=== PATIENT | male | born 1980 | race Caucasian/White ===

== ENCOUNTER 2024-11-04 13:50 | Emergency (ER) | payer SELFPAY ==
[2024-11-04 14:35] VITALS: BP 131/92; PULSE 84; RESP 18; TEMP 37.4; O2SAT 96; BMI 38.8
--- NOTE | 2024-11-04 14:35 | ED.DENTAL ---
HPI - Dental/Oral General Chief complaint: Dental/Oral Stated complaint: Tooth infection Time Seen by Provider: 11/04/24 14:43 Source: patient and RN notes reviewed Mode of arrival: ambulatory Limitations: no limitations History of Present Illness ED Provider: Shobha Hilton PA-C HPI Narrative: This is a 44-year-old male who presents to the emergency department with concerns of right upper dental pain. Patient reports that he has known dental problems, needs to see a dentist. He has not been on antibiotics recently. Denies any fevers or chills. No other complaints or concerns at this time. MD Complaint: tooth pain Location: Tooth # (1) Onset (ago): day(s) Duration: constant Relieving factors: nothing Exacerbating factors: nothing Treatment prior to arrival: none Related Data Previous Rx's ?Medication ?Instructions ?Recorded amoxicillin 875 mg-potassium 1 tab PO BID 7 days #14 tabs 11/04/24 clavulanate 125 mg tablet Allergies Allergy/AdvReac Type Severity Reaction Status Date / Time No Known Allergies Allergy Verified 11/04/24 14:36 Review of Systems Review of Systems: Constitutional : No Fever, No Chills ENT/Mouth : No sore throat, No Rhinorrhea Eyes: No Eye Pain, No Swelling, No Redness Cardiovascular : No Chest Pain, No SOB Respiratory : No Cough, No Sputum Gastrointestinal : No Nausea, No Vomiting, No Diarrhea, No abdominal Pain Genitourinary : No Dysuria, No Hematuria Musculoskeletal : No joint pain, No Myalgias, No Joint Swelling Skin : No Skin Lesions, positive skin rash Neuro : No Weakness, No Numbness, No Headache All other systems reviewed and are negative Yes all other systems are reviewed and are negative Constitutional: Constitutional: Reports as per [facility] Social History Social History Advance Directives: No Advance Directives Information Provided: Yes Physical Exam Exam: Exam: General: Awake, alert, and oriented X3. No acute distress. HEENT: Normal inspection, tooth 1 with tenderness palpation in this region, with dental a cane noted, no surrounding gingival erythema, fluctuance. No trismus, drooling, or dysphonia. CVS: Normal heart rate and rhythm. Pulses normal. Respiratory: No respiratory distress Skin: Warm, dry, no rashes noted to exposed skin. Normal skin color. Normal skin turgor. Extremities: Normal to inspection Neuro: Oriented X 3. No motor deficit. No sensory deficit. Vital Signs: Vital Signs: Last Vital Signs Temp 99.3 F 11/04/24 15:29 Pulse 84 11/04/24 15:29 Resp 18 11/04/24 15:29 BP 131/92 H 11/04/24 15:29 Pulse Ox 96 11/04/24 15:29 O2 Del Method Room Air 11/04/24 15:29 BMI result Body Mass Index 38.8 Course Course Course Narrative: This is an RME: Additional HPI, ROS, PE not included below will be deferred to primary provider. RME assessment and note performed by: Shobha Hilton PA-C This is a [id number]-male who presents to the ER with complaints of right upper dental pain. Plan: Medications Administered Discontinued Medications Generic Name Dose Route Start Last Admin Trade Name Freq PRN Reason Stop Dose Admin Amoxicillin/Clavulanate Potassium 875 mg 11/04/24 14:56 11/04/24 15:15 Amoxicillin/Potassium Clav 875 Mg Tablet PO 11/04/24 14:57 875 mg ONCE ONE Administration Ibuprofen 600 mg 11/04/24 14:56 11/04/24 15:16 Ibuprofen 600 Mg Tablet PO 11/04/24 14:57 600 mg ONCE ONE Administration Medical Decision Making Medical Decision Making [facility] Narrative: This is a 44-year-old male who presents emergency department with complaints of right upper dental pain for the last several days. Patient is homeless, does not have a dentist. Known dental issues. Patient has dental decay to his right upper tooth. No evidence of dental abscess. Will treat with course of antibiotics. Given strict return precautions, he understands and agrees with plan. Patient stable for discharge. Differential Diagnosis Differential Diagnoses: The differential diagnosis associated with the presentation includes Dental decay, dental abscess, dental fracture, dentalgia Discharge Plan Discharge Clinical Impression: Pain, dental Patient Disposition: Home, Self-Care Instructions: Toothache (ED) Additional Instructions: You were seen in the emergency department due to dental pain. Please take prescribed antibiotic as directed, finish the entire course even if your symptoms improve. You received your 1st dose in the department today, resume tonight. You may take ibuprofen and or Tylenol as needed for pain and symptoms. You need to follow-up with a dentist, call to make an appointment. If any new or worsening symptoms occur including but not limited to worsening pain, high fevers, difficulty swallowing or breathing, please return for re-evaluation. Prescriptions: New amoxicillin-pot clavulanate 875-125 mg tablet 1 tab PO BID 7 Days Qty: 14 0RF Interventions: ED Discharge Assessment Last Done: 11/04/24 15:29 Discharge Date/Time: 11/04/24 15:29 Print Language: Bangladeshi
[2024-11-04 15:29] VITALS: BP 131/92; PULSE 84; RESP 18; TEMP 37.4; O2SAT 96
--- OUTSIDE RECORDS SUMMARY | 2024-11-04 16:22 | XMS_ITS | Encounter Summary ---
Author Organization [facility] Address [address] [place] [address] [address] [address] Care Team Providers Care Sap Developer Name Role Phone Heber Patiño MD Primary Care Provider [phone] Reason for Visit * Reason Comments Med Refill Encounter Details Date Type Department Care Team (Late st Contact Info) Description 10/12/2023 Refill [facility] [address] [place] [address] Heber Patiño MD [address] [place] [address] Social History Tobacco Use Types Packs/Day Years Used Date Smoking Tobacco: Never Assessed Sex and Gender Information Value Date Recorded Sex Assigned at Male 12/02/2021 3:29 PM EDT Legal Sex Male 3:29 PM EDT Gender Identity Female 12/02/2021 3:29 PM EDT Sexual Orientation Straight 12/02/2021 3: 29 PM EDT documented as of this encounter Miscellaneous Notes * Telephone Encounter - Lina Ash MA - 10/12/2023 10:52 AM EDT There should still be another refill documented in this encounter Plan of Treatment Not on file documented as of this encounter Visit Diagnoses Not on filedocumented in this encounter Care Teams Sap Developer Relationship Specialty Start Date End Date Heber Patiño MD [address] [place] [address] PCP - General Family Medicine 04/05/22 documented as of this encounter
--- OUTSIDE RECORDS SUMMARY | 2024-11-04 16:22 | XMS_ITS | Encounter Summary ---
Author Organization [facility] Address [address] [place] [address] [address] [address] Care Team Providers Care Air Traffic Controller Name Role Phone Heber Patiño MD Primary Care Provider [phone] Reason for Visit * Reason Comments Med Refill Encounter Details Date Type Department Care Team (Late st Contact Info) Description 06/09/2023 Refill [facility] [address] [place] [address] Heber Patiño MD [address] [place] [address] Social History Tobacco Use Types Packs/Day Years Used Date Smoking Tobacco: Never Assessed Sex and Gender Information Value Date Recorded Sex Assigned at Male 12/02/2021 3:29 PM EDT Legal Sex Male 3:29 PM EDT Gender Identity Female 12/02/2021 3:29 PM EDT Sexual Orientation Straight 12/02/2021 3: 29 PM EDT documented as of this encounter Plan of Treatment Not on file documented as of this encounter Visit Diagnoses Not on filedocumented in this encounter Care Teams Air Traffic Controller Relationship Specialty Start Date End Date Heber Patiño MD [address] [place] [address] PCP - General Family Medicine 04/05/22 documented as of this encounter
--- OUTSIDE RECORDS SUMMARY | 2024-11-04 16:22 | XMS_ITS | Clinical Summary ---
Author Organization [facility] Address [address] [place] [address] Care Team Providers Care Valet Attendant Name Role Phone Heber Patiño MD Primary Care Provider [phone] Allergies No known active allergies Medications * This document contains information received from the source organization and may not represent a complete record from that organization. finasteride (Proscar) 5 MG tablet TAKE 1/4 TABLET BY MOUTH DAILY 14 tablet 4 03/21/2024 Active progesterone 200 MG capsuleIndicatio ns:Endocrine disorder, unspecified Take 1 capsule (200 mg) by mouth in the morning. 90 capsule 08/01/2024 Active spironolactone (Aldactone) 100 MG tabletIndication s:Endocrine disorder, unspecified Take 1 tablet (100 mg) by mouth 2 times daily. 180 tablet 08/01/2024 Active estradiol (Estrace) 2 MG tabletIndication s:Endocrine disorder, unspecified TAKE 3 TABLETS BY MOUTH EVERY DAY 270 tablet 08/01/2024 Active Active Problems Problem Noted Date Diagnosed Date Endocrine disorder, unspecified 04/17/2022 Assessment & Plan (04/17/2022 1:01 PM EDT): Reviewed risks of progesterone including small absolute risk elevation of blood clot. 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 Gender dysphoria 01/13/2020 Resolved Problems Problem Noted Date Diagnosed Date Resolved Date Hyponatremia 05/25/2020 04/17/2022 Encounters Date Type Department Care Team Description 08/05/2024 [facility] [address] [place] [address] Len Carias from Last 3 Months Social History Tobacco Use Types Packs/Day Years Used Date Smoking Tobacco: Never Assessed Sex and Gender Information Value Date Recorded Sex Assigned at Male 12/02/2021 3:29 PM EDT Legal Sex Male 3:29 PM EDT Gender Identity Female 12/02/2021 3:29 PM EDT Sexual Orientation Straight 12/02/2021 3: 29 PM EDT Plan of Treatment Health Maintenance Due Date Last Done Comments Depression Screening 1982 HIV Screening 1982 Lipid Panel 1982 SDOH Screening 1982 Disability Screening 1982 Alcohol/Substance Use Screening 1994 Tobacco Screening 1994 Family Planning (PISQ) 1997 HPV Vaccines (1 - 3-dose series) 1997 Hepatitis C Screening 2000 DTaP/Tdap/Td Vaccines (1 - Tdap) 2001 Hepatitis B Vaccines (1 of 3 - 19+ 3-dose series) 2001 COVID-19 Vaccine (1 - 2023-2 5 season) 2024 Influenza Vaccine (#1) 2024 Zoster Vaccines (1 of 2) 2032 RSV Patients and Pa tients Aged 60 years or older (1 - 1-dose 75+ series) 2057 HIB Vaccines Aged Out No longer eligi ble based on patient's age to complete this topic Hepatitis A Vaccines Aged Out No long er eligible based on patient's age to complete this topic IPV Vaccines Aged Out No longer eligi ble based on patient's age to complete this topic Meningococcal B Vaccine Aged Out No l onger eligible based on patient's age to complete this topic Meningococcal Vaccine Aged Out No gurdeep bertin eligible based on patient's age to complete this topic Pneumococcal Vaccine: Pediat rics (0 to 5 Years) and At-Risk Patients (6 to 49) Years Aged Out No longer eligible b ased on patient's age to complete this topic RSV under 20 months Aged Out No longe r eligible based on patient's age to complete this topic Rotavirus Vaccines Aged Out No longer eligible based on patient's age to complete this topic Insurance [facility] C3 Care Teams Valet Attendant Relationship Specialty Start Date End Date Heber Patiño MD [address] [place] [address] PCP - General Family Medicine 04/05/22
== END 2024-11-04 15:29 | disposition home or self-care (01) ==
PROVIDERS: Emergency Provider Emergency Medicine
DX: K08.89 Other specified disorders of teeth and supporting structures (principal)
CPT/HCPCS: 99283